=== PATIENT | female | born 1990 ===

== ENCOUNTER 2021-01-24 03:31 | Inpatient (IN) ==
[~2021-01-24 03:31] MED LIST: *HR* Nalbuphine 10 MG/ML AMPUL IV PRN; Famotidine 20 MG/2 ML VIAL IVP PRN; Lidocaine 1% 20 ML MDV INFILT PRN; Metoclopramide 10 MG/2 ML VIAL IVP PRN; Naloxone 0.4 MG/ML INJ IVP PRN; Ringers Solution, Lactated 1,000 ML ONE
[2021-01-24 03:55] LABS: Amphetamine Screen,Urine Negative ng/mL (Cutoff=1000); Barbiturate Screen,Urine Negative ng/mL (Cutoff=200); Benzodiazepines Screen,Urine Negative ng/mL (Cutoff=200); Cannabinoid Screen,Urine Negative ng/mL (Cutoff = 50); Cocaine Screen,Urine Negative ng/mL (Cutoff= 300); Opiate Screen,Urine Negative ng/mL (Cutoff=300); Phencyclidine Screen,Urine Negative ng/mL (Cutoff=25)
[2021-01-24 04:11] LABS: Basophils % 0.2 %; Eosinophils % 0.4 %; Hematocrit 39.9 % (35.3-44.9); Hemoglobin 13.6 g/dL (11.5-15.4); Immature Granulocytes % 0.5 % (0-4); Lymphocytes # 1.9 K/mcL (0.6-4.6); Lymphocytes % 17.4 %; Mean Corpuscular HGB Conc 34.1 g/dL (31.6-35.5); Mean Corpuscular Hemoglobin 32.2 pg (28.0-33.3); Mean Corpuscular Volume 94.5 fL (83.0-100.0); Mean Platelet Volume 10.7 fL (9.4-12.4); Monocytes # 0.6 K/mcL (0.0-1.3); Monocytes % 5.7 %; Neutrophils # 8.3 K/mcL (1.6-8.9); Platelet Count 216 K/mcL (140-400); Red Blood Count 4.22 M/mcL (3.82-4.97); Segmented Neutrophils % 75.8 %; White Blood Count 10.9 K/mcL (4.3-11.1)
[2021-01-24 04:24] LABS: Influenza A PCR Negative (Negative); Influenza B PCR Negative (Negative); Resp. Syncytial Virus PCR Negative (Negative)
[2021-01-24 04:28] LABS: SARS-CoV-2 by PCR (In House) Negative (Negative)
[2021-01-24] MEDS ORDERED: Epidural Premix (fent/bupiv) 110 ML EP ONE (04:41)
[2021-01-24] MEDS ORDERED: *HR* FentaNYL (PF) 100 MCG/2 ML VIAL ONE (04:42)
[2021-01-24] MEDS ORDERED: Ropivacaine/PF 0.2% 20 ML VIAL ONE (04:42)
[2021-01-24] MEDS ORDERED: EPHEDrine 50 MG/ML VIAL IVP PRN (05:10)
[2021-01-24] MEDS ORDERED: Oxytocin 20 units/ LR 1000 mL 20 UNIT/1,000 ML BAG IVC SCH (09:00)
[2021-01-24] MEDS: Ringers Solution, Lactated 1,000 ML IVC SCH ×2 (12:29→16:21)
[2021-01-24] MEDS: Epidural Premix (fent/bupiv) 110 ML EP SCH ×2 (12:29→19:34)
[2021-01-24] MEDS ORDERED: Acetaminophen 325 MG TABLET PO ONE (12:37)
[2021-01-24] MEDS ORDERED: Fluticasone Propionate Nasal 50 MCG/SPRAY BOTTLE NS SCH (12:45)
[2021-01-24 20:16] LABS: Protein/Creatinine Ratio,Urine 0.29 mg/mg (0.00-0.20)
[2021-01-24 20:16] LABS: Alanine Aminotransferase 12 Units/L (7-52); Aspartate Amino Transferase 19 Units/L (13-39); BUN/Creatinine Ratio 14 (6-26); Blood Urea Nitrogen 8 mg/dL (6-20); Lactate Dehydrogenase 234 Units/L (140-271); Uric Acid 3.7 mg/dL (2.3-7.6); eGFR For African Americans > 60 (> 60); eGFR For Non-African Americans > 60 (> 60)
[2021-01-25] MEDS ORDERED: Measles/Mumps/Rubella Vacc 0.5 ML VIAL SQ PRN (02:47)
[2021-01-25] MEDS ORDERED: Benzocaine/Menthol 56 GM AEROSOL SPRAY TP PRN (02:47)
[2021-01-25] MEDS ORDERED: Oxytocin 20 units/ LR 1000 mL 20 UNIT/1,000 ML BAG IVC SCH (02:47)
[2021-01-25] MEDS ORDERED: Rho Immune Globulin 1,500 UNIT SYRINGE IM PRN (02:47)
[2021-01-25] MEDS ORDERED: Lanolin 7 G OINT...G. TP PRN (02:47)
[2021-01-25] MEDS ORDERED: Ondansetron ODT 4 MG TAB.RAPDIS SL PRN (02:47)
[2021-01-25] MEDS: Acetaminophen 325 MG TABLET PO SCH ×3 (03:07→17:41)
[2021-01-25] MEDS: Ibuprofen 600 MG TABLET PO SCH ×3 (05:41→17:41)
[2021-01-25] MEDS: Prenatal Vit/FA 1 EACH TABLET PO SCH (08:44)
[2021-01-25] MEDS: *HR* HYDROcodone/Acet 5/325 mg TABLET PO PRN ×3 (08:44→19:50)
[2021-01-25] MEDS ORDERED: NON-FORMULARY MEDICATION 1 EACH EACH (Prenatal Vits96/Iron Fum/Folic [Prenatal Tablet] 1 E PO SCH (09:00)
[2021-01-26] MEDS: Ibuprofen 600 MG TABLET PO SCH ×2 (00:39→07:57)
[2021-01-26] MEDS: Acetaminophen 325 MG TABLET PO SCH ×2 (00:39→07:56)
[2021-01-26] MEDS: *HR* HYDROcodone/Acet 5/325 mg TABLET PO PRN ×2 (05:55→10:36)
[2021-01-26] MEDS: Prenatal Vit/FA 1 EACH TABLET PO SCH (07:57)
[2021-01-26 08:12] VITALS: PULSE 80
[2021-01-26 08:14] VITALS: BP 118/80; TEMP 97.8; O2SAT 100
== END 2021-01-26 13:13 | disposition home or self-care (01) | DRG 768 ==
LOC: 1NENULAB → 1NENUOBS 01-25 07:47
PROVIDERS: ADMIT Obstetrics & Gynecology; ATTEND Obstetrics & Gynecology